=== PATIENT | female | born 1975 | race African-American/Black ===

== ENCOUNTER 2016-06-05 11:19 | Emergency (ER) | payer OTHER ==
[~2016-06-05 11:19] MED LIST: ACETAMINOPHEN PO; ADVAIR 5001 DISK W/1; AFRIN NASAL SPR15 ML; ALBUTEROL 0.5ML INH; ALBUTEROL17 G1 IH; ALBUTEROL17 GM; ALBUTEROL17 GM INH; ALBUTEROL17 GM PO; AMOXICILLIN; AMOXICILLIN PO; BACTRIM DS TABL1 TA1 PO; BACTRIM DS TABL1 TAB PO; BENZONATATE PO; CITRATE OF MAG300 ML PO; COLACE PO; CORTISPORI3.5 GM OPT OD; DEPO-PROVER150 MG/M1 IM; DEPO-PROVER150 MG/ML; DEPO-PROVER150 MG/ML INJ; DICLOFENAC PO; FLEXERIL10 MG PO; FLONASE 0.05% N16 G1; FLOVENT HFA12 GM; FLOVENT HFA12 GM PO; FLOVENT7.9 GM 44 INH; HYDROCHLOROTH12.5 MG PO; IBUPROFEN; IBUPROFEN800 MG PO; KETOPROFEN PO; LEVAQUIN; MEDROL4 MG/DOSE- PO; NABUMETONE PO; NAPROSYN500 MG PO; NO MEDICATIONS; PHENERGAN/CODEIN5 ML PO; PREDNISONE PO; PYRIDIUM PO; ROBITUSSIN ALL118 ML PO; TORADOL10 MG PO; VOLTAREN75 MG PO; WALGREENS PHARMACY; Z PAK; ZITHROMAX PO
== END 2016-06-05 11:30 | disposition home or self-care (01) ==
LOC: SED 11:19
DX: Z48.01 Encounter for change or removal of surgical wound dressing (principal); J45.909 Unspecified asthma, uncomplicated; I10 Essential (primary) hypertension
CPT/HCPCS: 99282

== ENCOUNTER 2016-11-07 02:33 | Emergency (ER) | payer OTHER ==
[~2016-11-07] VITALS: Ht 170.2 cm; Wt 138.3 kg
--- NOTE | ~2016-11-07 | EKG ---
PATIENT: MACARENA PICKENS UNIT #: [id number] Ventricular Rate: 78 BPM Atrial Rate: 78 BPM P-R Interval: 178 ms QRS Duration: 76 ms Q-T Interval: 376 ms QTC Calculation(Bezet): 428 ms P Ivel: -1 degrees Calculated R Ivel: -13 degrees Calculated T Ivel: 9 degrees Diagnosis Line: Normal sinus rhythm Diagnosis Line: Minimal voltage criteria for LVH, may be normal Diagnosis Line: variant Diagnosis Line: Borderline ECG Diagnosis Line: When compared with ECG of 18-JAN-2011 00:42, Diagnosis Line: No significant change was found Diagnosis Line: Confirmed by ROBERTO BURTON MD ([id number]) on Diagnosis Line: 11/10/2016 8:22:30 AM INTERPRETING MD: JOSEPHINE ESTEVES
--- NOTE | ~2016-11-07 | CR72 ---
[facility]. [facility] A Service of [facility] RADIOLOGY TEXT RESULTS PATIENT: MACARENA PICKENS LOCATION: SED : 75 UNIT #: [id number] AGE: [address]: Malcolm Thomas MD SEX: F ORDER DR: [id number] [place] [id number] E MR#: [id number] Acc #: [id number] NAME: MACARENA PICKENS : 1975 SEX: F STUDY DATE/TIME: 11/07/2016 3:49 UNIT: SED ROOM: STUDY DESCRIPTION: CR Chest Single View Portable Attending Physician: Malcolm Thomas M.D. Ordering Physician: Malcolm Thomas M.D. Primary Care Physician: Jag Cam M.D. MEDICAL IMAGING REPORT This report is preliminary unless electronic signature is present. EXAM Chest x-ray, 11/07/2016 HISTORY 41-year-old female in the ED complaining of 2-day history of chest pain and shortness of air. TECHNIQUE AP portable chest x-ray. FINDINGS The examination is technically limited by patient body habitus and AP portable radiographic technique. The lung bases are underexposed. The lungs are grossly clear. Heart size and pulmonary vascularity are normal. No convincing airspace consolidation or pleural effusion. No change since 05/31/2016. IMPRESSION Negative chest, technically limited as noted. Dictated by... Jurgen Valentin M.D. THIS IS AN ELECTRONICALLY VERIFIED REPORT Jurgen Valentin M.D. at 11/07/2016 9:53 PM Korey TD: 11/07/2016 10:03 JOB #: [id number] MEDICAL IMAGING REPORT Page 1 of 1
[2016-11-07] MEDS ORDERED: CAPOZIDE PO (02:39)
[2016-11-07 03:14] LABS: POC - MYOGLOBIN 61.4 ng/mL (0.0-169.0); POC - TROPONIN <0.05 ng/mL (<=0.05)
[2016-11-07 03:19] LABS: BASOPHIL# 0.1 X10e3 (0-0.3); BASOPHIL% 0.7 % (0-2.5); EOSINOPHIL# 0.3 X10e3 (0-0.7); EOSINOPHIL% 3.6 % (0.0-7.0); HEMATOCRIT 38.8 % (35.0-45.0); HEMOGLOBIN 13.2 gm/dL (12.0-16.0); LYMPHOCYTE# 3.6 X10e3 (1.0-3.5); LYMPHOCYTE% 38.5 % (17.0-45.0); MEAN CELL VOLUME 90.6 FL (83-96); MEAN CORPUSCULAR HEMOGLOBIN 30.9 PG (28-34); MEAN PLATELET VOLUME 7.3 FL (6.5-11.5); MONOCYTE# 0.7 X10e3 (0-1.0); MONOCYTE% 7.7 % (3.0-12.0); NEUTROPHIL# 4.6 X10e3 (1.5-7.1); NEUTROPHIL% 49.5 % (40-75); PLATELET COUNT 283 X10e3 (140-420); RED BLOOD COUNT 4.28 X10e (3.90-5.30); RED CELL DISTRIBUTION WIDTH 13.4 % (11.0-15.5); WHITE BLOOD COUNT 9.3 X10e3 (4.0-10.5)
[2016-11-07 03:20] LABS: DIFF IND NO
[2016-11-07 03:36] LABS: ALBUMIN SERUM 3.4 g/dL (3.5-5.0); BILIRUBIN, DIRECT 0.1 mg/dL (0.0-0.2); BILIRUBIN,INDIRECT 0.2 mg/dL (0.0-0.9); BILIRUBIN,TOTAL 0.3 mg/dL (0.2-2.0); CALCIUM SERUM 8.4 mg/dL (8.4-10.2); CREATININE SERUM 0.6 mg/dL (0.6-1.4); GLOM FILT RATE Estimated 131.2 mL/min (>60); POTASSIUM 3.5 mmol/L (3.5-5.1); PROTEIN TOTAL SERUM 7.1 g/dL (6.0-8.3)
[2016-11-07 04:51] LABS: POC - CKMB <1.0 ng/mL (0.0-7.9); POC - MYOGLOBIN 41.9 ng/mL (0.0-169.0); POC - TROPONIN <0.05 ng/mL (<=0.05)
== END 2016-11-07 05:22 | disposition home or self-care (01) ==
LOC: SED 02:33
PROVIDERS: Emergency Medicine
DX: R07.9 Chest pain, unspecified (principal); I10 Essential (primary) hypertension; Z79.899 Other long term (current) drug therapy
CPT/HCPCS: 36415; 71010; 80048; 80076; 82553; 83874; 84484; 85025; 93005; 99285